=== PATIENT | female | born 1960 | race Caucasian/White ===

== ENCOUNTER 2016-09-08 17:31 | Emergency (ER) | payer BC, MEDICARE ==
[~2016-09-08] VITALS: Ht 152.4 cm; Wt 47.5 kg
[~2016-09-08 17:31] MED LIST: CEFP250S PO; CLON1 PO; DIPH50TA PO; ESTR1.25 PO; LORTS PO; MS C30TA5 PO; SAVILLA PO; STOO100C PO; TOPI25 PO
[2016-09-08 17:34] VITALS: BP 102/52; PULSE 75; RESP 18; TEMP 97.9; O2SAT 96
[2016-09-08] MEDS ORDERED: BACT2OIN2 TOPICAL (19:38)
[2016-09-08] MEDS ORDERED: HYDR-3533 PO (19:38)
[2016-09-08] MEDS ORDERED: MUPIROCIN 2% OINT 22 GM TUBE TOPICAL ONE (19:45)
[2016-09-08] MEDS ORDERED: ACETAMINOPHEN/HYDROcodone 325 MG/5 MG TAB PO ONE (19:45)
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
== END 2016-09-08 20:41 | disposition home or self-care (01) ==
LOC: NEPB 17:31
DX: T25.222A Burn of second degree of left foot, initial encounter (principal); F43.10 Post-traumatic stress disorder, unspecified; F17.210 Nicotine dependence, cigarettes, uncomplicated; X15.8XXA Contact with other hot household appliances, initial encounter; Y93.E4 Activity, ironing; Y92.9 Unspecified place or not applicable
CPT/HCPCS: 99283; E0113